=== PATIENT | male | born 1990 | race Caucasian/White ===

== ENCOUNTER 2018-05-30 14:16 | Emergency (ER) | payer MEDICAID, SELFPAY ==
[2018-05-30] MEDS ORDERED: HYDROCODONE/APAP 5/325 MG TAB ONE (14:57)
[2018-05-30] MEDS ORDERED: DOXYCYCLINE 100 MG CAP PO ONE (14:57)
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
== END 2018-05-30 15:47 | disposition home or self-care (01) ==
LOC: ER 14:16
DX: S91.332A Puncture wound without foreign body, left foot, initial encounter (principal); W56.82XA Struck by other nonvenomous marine animals, initial encounter; Y93.11 Activity, swimming; Y92.832 Beach as the place of occurrence of the external cause; Z88.2 Allergy status to sulfonamides
CPT/HCPCS: 99283

== ENCOUNTER 2019-11-16 10:27 | Emergency (ER) | payer MEDICAID ==
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
--- NOTE | 2019-11-16 12:10 | RAD REPORT ---
EXAM DESCRIPTION: RAD - Hip Right 2 View - 11/16/2019 11:32 am CLINICAL HISTORY: Right hip pain FINDINGS: No fracture or dislocation is seen. If patient continues have symptoms to suggest an occult fracture MRI would recommended
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
[2019-11-16 12:37] VITALS: TEMP 99; O2SAT 99
[2019-11-16 12:41] VITALS: BP 134/85
== END 2019-11-16 12:30 | disposition home or self-care (01) ==
LOC: ER 10:27
DX: S00.90XA Unspecified superficial injury of unspecified part of head, initial encounter (principal); M25.562 Pain in left knee; M25.551 Pain in right hip; V49.50XA Passenger injured in collision with unspecified motor vehicles in traffic accident, initial encounter; F31.9 Bipolar disorder, unspecified; Z88.2 Allergy status to sulfonamides
CPT/HCPCS: 70450; 99282

== ENCOUNTER 2019-12-20 11:32 | Emergency (ER) | payer MEDICAID, OTHER ==
[2019-12-20] MEDS ORDERED: LIDOCAINE 1% MPF 5 ML VIAL ONE (12:14)
[2019-12-20] MEDS ORDERED: BUPIVACAINE 0.5% PF 10 ML VIAL ONE (12:15)
--- NOTE | 2019-12-20 13:39 | RAD REPORT ---
EXAM DESCRIPTION: RAD - Hand Right 3 View - 12/20/2019 1:28 pm CLINICAL HISTORY: PAIN COMPARISON: No comparisons FINDINGS: No fracture or radiopaque foreign body visualized.
--- NOTE | 2019-12-20 14:07 | ER ---
Nurse's Notes [facility] Name: Sushant Gale Age: 29 yrs Sex: Male : 1990 Arrival Date: 12/20/2019 Time: 11:32 Bed 19 Private MD: Diagnosis: Laceration without foreign body of right ring finger without damage to nail Presentation: 12/20 11:58 Presenting complaint: Patient states: "I tripped over my dog, we have a glass coffee ss table and my hand went straight through." Dry blood noted to R hand. Transition of care: patient was not received from another setting of care. Complicating Factors: Pt reports small pieces of glass are present. Onset of symptoms was December 20, 2019. Risk Assessment: Do you want to hurt yourself or someone else? Patient reports no desire to harm self or others. Initial Sepsis Screen: Does the patient meet any 2 criteria? No. Patient's initial sepsis screen is negative. Does the patient have a suspected source of infection? No. Patient's initial sepsis screen is negative. Care prior to arrival: None. 11:58 Acuity: ROQUE 4 11:58 Method Of Arrival: Ambulatory Triage Assessment: 12:00 General: Appears in no apparent distress. comfortable, Behavior is cooperative, bp appropriate for age, anxious. Pain: Complains of pain in right hand. EENT: No deficits noted. Neuro: No deficits noted. Cardiovascular: No deficits noted. Respiratory: No deficits noted. GI: No signs and/or symptoms were reported involving the gastrointestinal system. : No signs and/or symptoms were reported regarding the genitourinary system. Derm: No deficits noted. Musculoskeletal: No deficits noted. Injury Description: Laceration sustained to palmar aspect of proximal phalanx of right ring finger was sustained 1-2 hours ago. is bleeding a small amount. Historical: - Allergies: 12:00 Sulfa (Sulfonamide Antibiotics); ss - Home Meds: 12:00 Depakote 500 mg Oral TbEC 1 tab 2 times per day [Active]; ss - PMHx: 12:00 Bipolar disorder; ss - PSHx: 12:00 rods in left ankle; metal plate and 3 rods in right hip; ss - Immunization history:: Adult Immunizations up to date. - Social history:: Smoking status: Patient denies any tobacco usage or history of. - Ebola Screening: : Patient denies exposure to infectious person Patient denies travel to an Ebola-affected area in the 21 days before illness onset. Screenin:00 Abuse screen: Denies threats or abuse. Denies injuries from another. Nutritional bp screening: No deficits noted. Tuberculosis screening: No symptoms or risk factors identified. Fall Risk None identified. Assessment: 12:00 General: SEE TRIAGE NOTE. Pain: Complains of pain in palmar aspect of proximal phalanx bp of right ring finger. Musculoskeletal: Circulation, motion, and sensation intact. Range of motion: intact in all extremities. Injury Description: Laceration sustained to palmar aspect of proximal phalanx of right ring finger is jagged, 0.5 to 2.5 cm long, not bleeding. 13:30 Reassessment: Reassessment: XRAY COMPLETE, RESULTS PENDING FOR R/O FOREIGN BODY PRIOR bp TO LAC REPAIR. 13:55 Reassessment: PROVIDER AT B/S FOR LAC REPAIR. bp 15:09 Reassessment: PT D/C HOME AMBULATORY, DX WITH LACERATION WITHOUT FOREIGN BODY. mg2 Vital Signs: 12:00 BP 140 / 94; Pulse 81; Resp 16; Temp 98.5(O); Pulse Ox 100% on R/A; Weight 108.86 kg; ss Height 6 ft. 2 in. (187.96 cm); Pain 7/10; 14:00 BP 155 / 76; Pulse 84; Resp 16; Pulse Ox 99% ; bp 15:09 BP 127 / 82; Pulse 79; Resp 17; Temp 98.5; Pulse Ox 97% ; mg2 12:00 Body Mass Index 30.81 (108.86 kg, 187.96 cm) ED Course: 11:32 Patient arrived in ED. ds1 11:37 Marsha Mock FNP-C is PHCP. kb 11:37 Enio Matos MD is Attending Physician. kb 12:00 Triage completed. ss 12:00 Arm band placed on right wrist. ss 12:00 Patient has correct armband on for positive identification. Bed in low position. Call bp light in reach. Side rails up X2. 12:02 Trae Muñoz, RN is Primary Nurse. bp 13:29 Hand Right 3 View XRAY In Process Unspecified. EDMS 13:56 Assist provider with laceration repair on right hand that was 2.5 cm. or less using bp sutures. Set up tray. Performed by Marsha ALLRED Dressed with Va, Patient tolerated well. 14:23 Aluminum finger splint applied to dorsal aspect of distal phalanx of right ring finger, dh3 dorsal aspect of middle phalanx of right ring finger, dorsal aspect of proximal phalanx of right ring finger, palmar aspect of distal phalanx of right ring finger, palmar aspect of middle phalanx of right ring finger and palmar aspect of proximal phalanx of right ring finger. 14:26 Dressings: Va x 1 right hand non-adherent dressing x 1 right hand triple antibiotic dh3 ointment. 15:10 Patient did not have IV access during this emergency room visit. mg2 Administered Medications: 12:30 Drug: Lidocaine (1 %) 1 vials {Note: AT B/S.} Volume: 5 ml; Route: Infiltration; bp 12:30 Drug: Bupivacaine (0.5 %) 1 vials {Note: AT B/S.} Volume: 10 ml; Route: Infiltration; bp Outcome: 14:07 Discharge ordered by . jarvis 15:10 Discharged to home ambulatory. mg2 15:10 Condition: stable 15:10 Discharge instructions given to patient, Instructed on discharge instructions, follow up and referral plans. Demonstrated understanding of instructions, follow-up care. 15:11 Patient left the ED. mg2 Signatures: Dispatcher [employer] EDID Marsha Mock FNP-C FNP-Gabrielle Cramer ds1 Gloria Dsouza RN RN Ludmila Chung 3 Trae Muñoz RN RN bp Gardose, Michele, RN RN mg2 Corrections: (The following items were deleted from the chart) 13:56 13:30 Reassessment: bp bp
--- NOTE | 2019-12-20 14:08 | EDPHYS ---
Physician Documentation [facility] Name: Sushant Gale Age: 29 yrs Sex: Male : 1990 Arrival Date: 12/20/2019 Time: 11:32 Bed 19 Private MD: ED Physician Enio Matos HPI: 12/20 12:31 This 29 yrs old Male presents to ER via Ambulatory with complaints of kb Laceration To Hand, Fall Injury. 12:31 The patient has a laceration related to: falling from a standing position, occurred at home, and there are no complicating factors. The injury was accidental. The laceration(s) is(are) located on the right ring finger. Onset: The symptoms/episode began/occurred 1 hour(s) ago. Associated signs and symptoms: The patient has no apparent associated signs or symptoms. The patient has not experienced similar symptoms in the past. The patient has not recently seen a physician. Pt reports he was tripped by a dog and fell onto glass coffee table. . Historical: - Allergies: 12:00 Sulfa (Sulfonamide Antibiotics); ss - Home Meds: 12:00 Depakote 500 mg Oral TbEC 1 tab 2 times per day [Active]; ss - PMHx: 12:00 Bipolar disorder; ss - PSHx: 12:00 rods in left ankle; metal plate and 3 rods in right hip; ss - Immunization history:: Adult Immunizations up to date. - Social history:: Smoking status: Patient denies any tobacco usage or history of. - Ebola Screening: : Patient denies exposure to infectious person Patient denies travel to an Ebola-affected area in the 21 days before illness onset. ROS: 12:31 Constitutional: Negative for fever, chills, and weight loss, Neck: Negative for injury, kb pain, and swelling, Cardiovascular: Negative for chest pain, palpitations, and edema, Respiratory: Negative for shortness of breath, cough, wheezing, and pleuritic chest pain, Abdomen/GI: Negative for abdominal pain, nausea, vomiting, diarrhea, and constipation, Back: Negative for injury and pain, Neuro: Negative for headache, weakness, numbness, tingling, and seizure. 12:31 MS/extremity: Positive for laceration, pain, of the right ring finger. Exam: 14:06 Constitutional: This is a well developed, well nourished patient who is awake, alert, kb and in no acute distress. Head/Face: Normocephalic, atraumatic. Neck: Trachea midline, no thyromegaly or masses palpated, and no cervical lymphadenopathy. Supple, full range of motion without nuchal rigidity, or vertebral point tenderness. No Meningismus. Chest/axilla: Normal chest wall appearance and motion. Nontender with no deformity. No lesions are appreciated. Cardiovascular: Regular rate and rhythm with a normal S1 and S2. No gallops, murmurs, or rubs. Normal PMI, no JVD. No pulse deficits. Respiratory: Lungs have equal breath sounds bilaterally, clear to auscultation and percussion. No rales, rhonchi or wheezes noted. No increased work of breathing, no retractions or nasal flaring. Abdomen/GI: Soft, non-tender, with normal bowel sounds. No distension or tympany. No guarding or rebound. No evidence of tenderness throughout. MS/ Extremity: Pulses equal, no cyanosis. Neurovascular intact. Full, normal range of motion. Neuro: Awake and alert, GCS 15, oriented to person, place, time, and situation. Cranial nerves II-XII grossly intact. Motor strength 5/5 in all extremities. Sensory grossly intact. Cerebellar exam normal. Normal gait. 14:06 Skin: injury, laceration(s), the wound is approximately 2 cm(s), of the dorsal aspect of middle phalanx of right ring finger, that can be described as clean, no foreign body, irregular, without bleeding. Vital Signs: 12:00 BP 140 / 94; Pulse 81; Resp 16; Temp 98.5(O); Pulse Ox 100% on R/A; Weight 108.86 kg; ss Height 6 ft. 2 in. (187.96 cm); Pain 7/10; 14:00 BP 155 / 76; Pulse 84; Resp 16; Pulse Ox 99% ; bp 15:09 BP 127 / 82; Pulse 79; Resp 17; Temp 98.5; Pulse Ox 97% ; mg2 12:00 Body Mass Index 30.81 (108.86 kg, 187.96 cm) ss Procedures: 12:30 Nerve block: (digital) of palmar aspect of proximal phalanx of right ring finger kb Medication: Lidocaine 1% without epinephrine Marcaine 0.5%, Amount: 5 mls were injected, Effect: the patient has resolution of the pain, Set up for procedure. Performed by Marsha ALLRED Patient tolerated well. Laceration: 14:05 Wound Repair of 2cm ( 0.8in ) subcutaneous laceration to dorsal aspect of middle kb phalanx of right ring finger. Irregularly shaped.. Skin/tissue flap noted.. Distal neuro/vascular/tendon intact. Anesthesia: Digital block administered with 1% lidocaine. Wound prep: Extensive cleansing with hibiclenz by me, Wound irrigation with saline by me. Skin closed with 5 5-0 Prolene using interrupted sutures and sterile technique. Dressed with tube gauze. Patient tolerated well. MDM: 12:02 Patient medically screened. kb 12:30 Data reviewed: vital signs, nurses notes. Data interpreted: Pulse oximetry: on room air kb is 100 %. Interpretation: normal. 14:05 Counseling: I had a detailed discussion with the patient and/or guardian regarding: the kb historical points, exam findings, and any diagnostic results supporting the discharge/admit diagnosis, radiology results, the need for outpatient follow up, a family practitioner, to return to the emergency department if symptoms worsen or persist or if there are any questions or concerns that arise at home. 12/20 12:29 Order name: Hand Right 3 View XRAY; Complete Time: 13:42 kb 12/20 12:29 Order name: Misc. Order: soak hand for 20 minutes in betadine/NS mixture; Complete kb Time: 12:30 12/20 12:29 Order name: Prolene, Sutures; Complete Time: 12:31 kb 12/20 12:29 Order name: Dressing - Wound; Complete Time: 12:31 kb 12/20 12:29 Order name: Gloves, Sterile; Complete Time: 12:31 kb 12/20 12:29 Order name: Setup Suture Tray; Complete Time: 12:31 kb Administered Medications: 12:30 Drug: Lidocaine (1 %) 1 vials {Note: AT B/S.} Volume: 5 ml; Route: Infiltration; bp 12:30 Drug: Bupivacaine (0.5 %) 1 vials {Note: AT B/S.} Volume: 10 ml; Route: Infiltration; bp Disposition: 15:51 Co-signature as Attending Physician, Enio Matos MD. ma2 Disposition: 12/20/19 14:07 Discharged to Home. Impression: Laceration without foreign body of right ring finger without damage to nail. - Condition is Stable. - Discharge Instructions: Laceration Care, Adult, [id number]. - Medication Reconciliation Form, Thank You Letter, Antibiotic Education, Prescription Opioid Use form. - Follow up: Emergency Department; When: As needed; Reason: Worsening of condition. Follow up: Private Physician; When: 2 - 3 days; Reason: Recheck today's complaints, Continuance of care, Re-evaluation by your physician. Signatures: Dispatcher [employer] EDMS Marsha Mock, METALLURGIST PROCESS-C METALLURGIST PROCESS-Gloria Moran RN RN ss Trae Muñoz RN RN Enio Muñoz MD MD ma2 dAama Caceres RN RN mg2 Corrections: (The following items were deleted from the chart) 15:11 14:07 12/20/2019 14:07 Discharged to Home. Impression: Laceration without foreign body mg2 of right ring finger without damage to nail. Condition is Stable. Forms are Medication Reconciliation Form, Thank You Letter, Antibiotic Education, Prescription Opioid Use. Follow up: Emergency Department; When: As needed; Reason: Worsening of condition. Follow up: Private Physician; When: 2 - 3 days; Reason: Recheck today's complaints, Continuance of care, Re-evaluation by your physician. kb
[2019-12-20 15:58] VITALS: TEMP 98.5
[2019-12-20 16:01] VITALS: BP 127/82; O2SAT 97
== END 2019-12-20 15:11 | disposition home or self-care (01) ==
LOC: ER 11:32
PROC: 0JQJ0ZZ Repair Right Hand Subcutaneous Tissue and Fascia, Open Approach (ICD-10-PCS; principal; 2019-12-20)
DX: S61.214A Laceration without foreign body of right ring finger without damage to nail, initial encounter (principal); W01.110A Fall on same level from slipping, tripping and stumbling with subsequent striking against sharp glass, initial encounter; Y93.K1 Activity, walking an animal; Y92.9 Unspecified place or not applicable; F31.9 Bipolar disorder, unspecified; Z88.2 Allergy status to sulfonamides
CPT/HCPCS: 64450; 99284

== ENCOUNTER 2021-05-12 07:16 | Emergency (ER) | payer OTHER ==
[2021-05-12] MEDS ORDERED: NA CHLORIDE 0.9% 1,000 ML ONE (07:59)
[2021-05-12] MEDS ORDERED: ONDANSETRON 4 MG/2 ML VIAL ONE (07:59)
[2021-05-12] MEDS ORDERED: MEPERIDINE HCL 25 MG/ML SYR ONE (08:25)
[2021-05-12 09:24] LABS: SARS-COV-2 RT PCR NEGATIVE (NEGATIVE)
--- NOTE | 2021-05-12 09:54 | EDPHYS ---
Physician Documentation [facility] Name: Sushant Gale Age: 30 yrs Sex: Male : 1990 Arrival Date: 05/12/2021 Time: 07:18 Bed 6 Private MD: ED Physician Angel Henley HPI: 05/12 07:40 This 30 yrs old Male presents to ER via Ambulatory with complaints of rn Nausea/Vomiting, Headache. 07:40 The patient presents to the emergency department with nausea, vomiting. rn 07:40 The patient complains of pain to the forehead. The patient describes the headache as rn aching. Onset: The symptoms/episode began/occurred 2 day(s) ago. Associated signs and symptoms: Pertinent positives: nausea, Pertinent negatives: neck stiffness, rash, vision changes, vision loss. Severity of symptoms: At its worst the pain was moderate, in the emergency department the pain is unchanged. The symptoms are alleviated by nothing. the symptoms are aggravated by nothing. The patient has not experienced similar symptoms in the past. The patient has not recently seen a physician. Reports 2 days of feeling bad, headache, cough, nausea, diarrhea, low grade fever, fatigue. No stiff neck. Reports had COVID last year. No known sick contacts. . Historical: - Allergies: 07:33 Sulfa (Sulfonamide Antibiotics); ll1 07:22 Sulfa (Sulfonamide Antibiotics); ll1 - PMHx: 07:33 Bipolar disorder; ll1 07:22 Bipolar disorder; ll1 - PSHx: 07:33 rods in left ankle; metal plate and 3 rods in right hip; ll1 07:22 rods in left ankle; metal plate and 3 rods in right hip; ll1 - Immunization history:: Flu vaccine is not up to date. - Social history:: Smoking status: Patient denies any tobacco usage or history of. - Family history:: not pertinent. - Hospitalizations: : No recent hospitalization is reported. ROS: 07:40 Constitutional: + low grade fever Eyes: Negative for injury, pain, redness, and pattern puncher, ENT: Negative for injury, pain, and discharge, Neck: Negative for injury, pain, and swelling, Cardiovascular: Negative for chest pain, palpitations, and edema, Respiratory: + cough, neg for sob Abdomen/GI: + nausea and diarrhea, neg for abd pain : Negative for injury, bleeding, discharge, and swelling, MS/Extremity: Negative for injury and deformity, Skin: Negative for injury, rash, and discoloration, Neuro: + headache and generalized fatigue Exam: 07:40 Constitutional: This is a well developed, well nourished patient who is awake, alert, rn and in no acute distress. Ambulatory to room without assistance or difficulty. Head/Face: Normocephalic, atraumatic. Eyes: Pupils equal round and reactive to light, extra-ocular motions intact. Lids and lashes normal. Conjunctiva and sclera are non-icteric and not injected. Cornea within normal limits. Periorbital areas with no swelling, redness, or edema. ENT: No stridor Neck: Trachea midline, no thyromegaly or masses palpated, and no cervical lymphadenopathy. Supple, full range of motion without nuchal rigidity, or vertebral point tenderness. No Meningismus. Cardiovascular: Tachycardic, regular Respiratory: Speaking full sentences, unlabored. No increased work of breathing, no retractions or nasal flaring. Abdomen/GI: soft, non-tender Skin: Warm, dry, no rash MS/ Extremity: Pulses equal, no cyanosis. Neurovascular intact. Full, normal range of motion. Equal circumference. Neuro: Awake and alert, GCS 15, oriented to person, place, time, and situation. Cranial nerves II-XII grossly intact. Motor strength 5/5 in all extremities. Sensory grossly intact. Cerebellar exam normal. Normal gait. Vital Signs: 07:33 BP 146 / 93; Pulse 112; Resp 17; Temp 98.4; Pulse Ox 98% on R/A; Weight 113.4 kg; ll1 Height 6 ft. 1 in. (185.42 cm); Pain 8/10; 08:45 BP 124 / 80; Pulse 103; Resp 18; Pulse Ox 100% on R/A; ph 09:50 BP 129 / 75; Pulse 105; Resp 16; Pulse Ox 100% on R/A; ph 10:20 BP 139 / 79; Pulse 94; Resp 17; Temp 98.5; Pulse Ox 100% ; bp 07:33 Body Mass Index 32.98 (113.40 kg, 185.42 cm) ll1 [place] Coma Score: 09:53 Eye Response: spontaneous(4). Verbal Response: oriented(5). Motor Response: obeys rn commands(6). Total: 15. MDM: 07:25 Patient medically screened. rn 09:53 Differential diagnosis: migraine, tension headache, viral cephalgia, viral syndrome. rn Data reviewed: vital signs, nurses notes, lab test result(s), and as a result, I will discharge patient. Counseling: I had a detailed discussion with the patient and/or guardian regarding: the historical points, exam findings, and any diagnostic results supporting the discharge/admit diagnosis, lab results, the need for outpatient follow up, to return to the emergency department if symptoms worsen or persist or if there are any questions or concerns that arise at home. Response to treatment: the patient's symptoms have mildly improved after treatment, and as a result, I will discharge patient. Special discussion: I discussed with the patient/guardian in detail that at this point there is no indication for admission to the hospital. It is understood, however, that if the symptoms persist or worsen the patient needs to return immediately for re-evaluation. 05/12 07:32 Order name: Strep rn 05/12 07:32 Order name: Flu rn 05/12 07:32 Order name: COVID-19 : Document "Date of Symptom Onset" if Symptomatic. rn 05/12 07:32 Order name: Harvey Screen Profile rn 05/12 07:32 Order name: Group A Streptococcus Rapid Sc; Complete Time: 09:16 EDMS 05/12 07:32 Order name: IV Start; Complete Time: 07:53 rn 05/12 07:32 Order name: Harvey Screen; Complete Time: 09:01 EDMS 05/12 09:10 Order name: Throat Culture EDWY 05/12 09:25 Order name: COVID-19/FLU A+B; Complete Time: 09:53 EDMS Administered Medications: 07:50 Drug: NS 0.9% 1000 ml Route: IV; Rate: 1000 ml; Site: right antecubital; bp 08:52 Follow up: IV Status: Completed infusion; IV Intake: 1000ml bp 07:50 Drug: Zofran (Ondansetron) 4 mg Route: IVP; Site: left wrist; bp 08:52 Follow up: Response: No adverse reaction bp 07:56 Drug: Demerol (meperidine) 25 mg Route: IVP; Site: right forearm; bp 08:52 Follow up: Response: Pain is decreased bp Disposition: 05/12/21 09:54 Discharged to Home. Impression: Headache, Viral syndrome. - Condition is Stable. - Discharge Instructions: General Headache Without Cause. - Medication Reconciliation Form, Thank You Letter, Antibiotic Education, Prescription Opioid Use, Work release form form. - Follow up: Private Physician; When: As needed; Reason: Recheck today's complaints, Re-evaluation by your physician. - Problem is new. - Symptoms have improved. Signatures: Dispatcher [employer] [facility] Angel Henley MD MD rn Trae Muñoz RN RN bp Guillermo Carpio RN RN ll1 Corrections: (The following items were deleted from the chart) 08:34 07:32 CORONAVIRUS ordered. [facility] 08:35 07:32 Influenza Screen (A ordered. [facility] 10:24 09:54 05/12/2021 09:54 Discharged to Home. Impression: Headache; Viral syndrome. bp Condition is Stable. Forms are Medication Reconciliation Form, Thank You Letter, Antibiotic Education, Prescription Opioid Use. Follow up: Private Physician; When: As needed; Reason: Recheck today's complaints, Re-evaluation by your physician. Problem is new. Symptoms have improved. rn
--- NOTE | 2021-05-12 09:54 | ER ---
Nurse's Notes [facility] Name: Sushant Gale Age: 30 yrs Sex: Male : 1990 Arrival Date: 05/12/2021 Time: 07:18 Bed 6 Private MD: Diagnosis: Headache;Viral syndrome Presentation: 05/12 07:33 Chief complaint: Patient states: BECKER with N/V/D since . + nasal congestion and ll1 slight cough. Fatigue and tired. Fever on Friday. Coronavirus screen: Client denies travel out of the [place] in the last 14 days. congestion, cough unrelated to allergies, diarrhea, fatigue, fever, headache, nausea, vomiting. Client presents with at least one sign or symptom that may indicate coronavirus-19. Standard/surgical mask placed on the client. Ebola Screen: Patient denies travel to an Ebola-affected area in the 21 days before illness onset. Initial Sepsis Screen: Does the patient meet any 2 criteria? HR > 90 bpm. No. Patient's initial sepsis screen is negative. Does the patient have a suspected source of infection? Yes: Productive cough/pneumonia. Risk Assessment: Do you want to hurt yourself or someone else? Patient reports no desire to harm self or others. Onset of symptoms was May 10, 2021. 07:33 Method Of Arrival: Ambulatory ll1 07:33 Acuity: ROQUE 3 ll1 Triage Assessment: 07:30 General: Appears distressed, uncomfortable, Behavior is cooperative, appropriate for bp age, anxious. GI: Reports nausea, vomiting. Historical: - Allergies: 07:33 Sulfa (Sulfonamide Antibiotics); ll1 07:22 Sulfa (Sulfonamide Antibiotics); ll1 - PMHx: 07:33 Bipolar disorder; ll1 07:22 Bipolar disorder; ll1 - PSHx: 07:33 rods in left ankle; metal plate and 3 rods in right hip; ll1 07:22 rods in left ankle; metal plate and 3 rods in right hip; ll1 - Immunization history:: Flu vaccine is not up to date. - Social history:: Smoking status: Patient denies any tobacco usage or history of. - Family history:: not pertinent. - Hospitalizations: : No recent hospitalization is reported. Screenin:45 Abuse screen: Denies threats or abuse. Denies injuries from another. Nutritional ph screening: No deficits noted. Tuberculosis screening: No symptoms or risk factors identified. Fall Risk None identified. Assessment: 08:45 Reassessment: Patient appears in no apparent distress at this time. Patient and/or ph family updated on plan of care and expected duration. Pain level reassessed. Patient is alert, oriented x 3, equal unlabored respirations, skin warm/dry/pink. 10:20 Reassessment: PT D/C HOME AMBULATORY, DX WITH VIRAL SYNDROME HEADACHE. Pain: Denies bp pain. GI: Abdomen is non-distended. Vital Signs: 07:33 BP 146 / 93; Pulse 112; Resp 17; Temp 98.4; Pulse Ox 98% on R/A; Weight 113.4 kg; ll1 Height 6 ft. 1 in. (185.42 cm); Pain 8/10; 08:45 BP 124 / 80; Pulse 103; Resp 18; Pulse Ox 100% on R/A; ph 09:50 BP 129 / 75; Pulse 105; Resp 16; Pulse Ox 100% on R/A; ph 10:20 BP 139 / 79; Pulse 94; Resp 17; Temp 98.5; Pulse Ox 100% ; bp 07:33 Body Mass Index 32.98 (113.40 kg, 185.42 cm) ll1 [place] Coma Score: 09:53 Eye Response: spontaneous(4). Verbal Response: oriented(5). Motor Response: obeys rn commands(6). Total: 15. ED Course: 07:18 Patient arrived in ED. as 07:22 Arm band placed on Patient placed in an exam room, on a stretcher. ll1 07:25 Angel Henley MD is Attending Physician. rn 07:26 Trae Muñoz, JORDAN is Primary Nurse. bp 07:30 Inserted saline lock: 20 gauge in right forearm, using aseptic technique. Blood bp collected. 07:35 Triage completed. ll1 08:45 Patient has correct armband on for positive identification. Bed in low position. Call ph light in reach. Side rails up X 1. Pulse ox on. NIBP on. Door closed. Noise minimized. 10:22 No provider procedures requiring assistance completed. IV discontinued, intact, bp bleeding controlled, No redness/swelling at site. Pressure dressing applied. Administered Medications: 07:50 Drug: NS 0.9% 1000 ml Route: IV; Rate: 1000 ml; Site: right antecubital; bp 08:52 Follow up: IV Status: Completed infusion; IV Intake: 1000ml bp 07:50 Drug: Zofran (Ondansetron) 4 mg Route: IVP; Site: left wrist; bp 08:52 Follow up: Response: No adverse reaction bp 07:56 Drug: Demerol (meperidine) 25 mg Route: IVP; Site: right forearm; bp 08:52 Follow up: Response: Pain is decreased bp Intake: 08:52 IV: 1000ml; Total: 1000ml. bp Outcome: 09:54 Discharge ordered by . rn 10:22 Discharged to home ambulatory. bp 10:22 Condition: stable 10:22 Instructed on discharge instructions, follow up and referral plans. 10:24 Patient left the ED. bp Signatures: Rissa Novak Roman, MD MD rn Hall, Patricia, RN RN ph Peltier, Brian, RN RN bp Lewis, Lynsay, RN RN ll1
[2021-05-12 10:38] VITALS: O2SAT 100
[2021-05-12 10:41] VITALS: BP 139/79; TEMP 98.5
== END 2021-05-12 10:24 | disposition home or self-care (01) ==
LOC: ER 07:16
DX: B34.9 Viral infection, unspecified (principal); Z86.16 Personal history of COVID-19; Z20.822 Contact with and (suspected) exposure to COVID-19; Z88.2 Allergy status to sulfonamides
CPT/HCPCS: 87070; 36415; 86308; 87081; 0240U; J2175; J7030; J2405; 99284